=== PATIENT | female | born 1960 | race Caucasian/White ===

== ENCOUNTER 2020-04-02 13:30 | Emergency (ER) | payer OTHER ==
[~2020-04-02] VITALS: Ht 160 cm; Wt 81.0 kg
[2020-04-02] MEDS ORDERED: ASPIRIN 81MG TABLET PO ONE (14:45)
[2020-04-02] MEDS ORDERED: NITROGLYCERIN 0.4MG TABLET SL SL PRN (14:45)
[2020-04-02 16:02] LABS: BASOPHILS % 0.3 % (0.0-2.0); EOSINOPHILS % 0.2 % (0.0-5.0); HEMATOCRIT. 39.5 % (36.0-48.0); HEMOGLOBIN. 13.4 g/dL (12.0-16.0); LYMPHOCYTES % 24.9 % (20.0-50.0); MEAN CORPUSCULAR HEMOGLOBIN 28.5 pg (28.0-32.0); MEAN CORPUSCULAR VOLUME 84.4 fL (81.0-99.0); MEAN PLATELET VOLUME 8.3 fl (7.4-10.4); NEUTROPHILS % 67.6 % (40.0-76.0); PLATELET 189 x1000/uL (130-400); RED BLOOD CELL COUNT 4.69 mill/uL (4.2-5.4); RED CELL DISTRIBUTION WIDTH 13.6 % (11.6-14.6)
[2020-04-02 16:10] LABS: CHLORIDE 106 mEq/L (98-107)
[2020-04-02 16:13] LABS: D-DIMER 0.44 mg/L FEU (<0.50); PARTIAL THROMBOPLASTIN TIME 26.9 sec (23.4-31.0); PROTHROMBIN TIME 10.4 sec (9.6-11.0)
[2020-04-02] MEDS ORDERED: ACETAMINOPHEN 325MG TABLET PO ONE (18:00)
[2020-04-02 18:42] VITALS: BP 151/62
== END 2020-04-02 18:44 | disposition home or self-care (01) ==
LOC: ER 14:06
DX: R07.89 Other chest pain (principal); I10 Essential (primary) hypertension
CPT/HCPCS: 36415; 71045; 80053; 83880; 84484; 85025; 85379; 85610; 85730; 93005; 99285; Z7610

== ENCOUNTER 2020-10-08 20:35 | Emergency (ER) | payer OTHER ==
[~2020-10-08] VITALS: Ht 160 cm; Wt 70.0 kg
[2020-10-09] MEDS ORDERED: DIPHENHYDRAMINE 50MG/ML VIAL IV ONE
[2020-10-09] MEDS ORDERED: METOCLOPRAMIDE HCL 10MG/2ML VIAL IV ONE
[2020-10-09 01:44] VITALS: BP 138/72
== END 2020-10-09 01:51 | disposition home or self-care (01) ==
LOC: ER 20:35
DX: G43.909 Migraine, unspecified, not intractable, without status migrainosus (principal); I10 Essential (primary) hypertension; K76.9 Liver disease, unspecified; E11.9 Type 2 diabetes mellitus without complications
CPT/HCPCS: 96374; 96375; 99284; J1200; J2765

== ENCOUNTER 2020-10-21 12:56 | Emergency (ER) | payer OTHER ==
[~2020-10-21] VITALS: Ht 157.5 cm; Wt 68.0 kg
[2020-10-21] MEDS ORDERED: SUMATRIPTAN SUCCINATE 6MG/0.5ML VIAL SUBCUT ONE (14:15)
[2020-10-21] MEDS ORDERED: LORAZEPAM 0.5MG TABLET PO ONE (14:45)
[2020-10-21] MEDS ORDERED: ACETAMINOPHEN WITH CODEINE 300/60MG TABLET PO NR (19:45)
[2020-10-21 21:06] VITALS: BP 131/51
== END 2020-10-21 21:06 | disposition home or self-care (01) ==
LOC: ER 12:56
DX: R51.9 Headache, unspecified (principal); I49.8 Other specified cardiac arrhythmias; I10 Essential (primary) hypertension; K76.9 Liver disease, unspecified
CPT/HCPCS: 36415; 84484; 93005; 96372; 99285; J3030; Z7610

== ENCOUNTER 2020-11-11 22:05 | Emergency (ER) | payer OTHER ==
[~2020-11-11] VITALS: Ht 157.5 cm; Wt 65.0 kg
[2020-11-12] MEDS ORDERED: HYDROCODONE/ACETAMINOPHEN 5/325MG TABLET PO ONE (02:00)
[2020-11-12] MEDS ORDERED: KETOROLAC 15MG/ML VIAL IM ONE (03:00)
[2020-11-12 03:07] LABS: BASOPHILS % 0.3 % (0.0-2.0); EOSINOPHILS % 0.3 % (0.0-5.0); HEMATOCRIT. 39.2 % (36.0-48.0); HEMOGLOBIN. 13.2 g/dL (12.0-16.0); LYMPHOCYTES % 21.1 % (20.0-50.0); MEAN CORPUSCULAR VOLUME 85.8 fL (81.0-99.0); MEAN PLATELET VOLUME 8.1 fl (7.4-10.4); MONOCYTES % 7.2 % (2.0-8.0); NEUTROPHILS % 71.1 % (40.0-76.0); PLATELET 185 x1000/uL (130-400); RED BLOOD CELL COUNT 4.56 mill/uL (4.2-5.4); RED CELL DISTRIBUTION WIDTH 13.7 % (11.6-14.6)
[2020-11-12 03:13] LABS: CHLORIDE 106 mEq/L (98-107)
[2020-11-12] MEDS ORDERED: IBUP-2028 MT (04:36)
[2020-11-12 04:55] VITALS: BP 134/65
== END 2020-11-12 05:04 | disposition home or self-care (01) ==
LOC: ER 22:05
DX: R07.89 Other chest pain (principal); R51.9 Headache, unspecified; R00.0 Tachycardia, unspecified
CPT/HCPCS: 36415; 71045; 80053; 84484; 85025; 93005; 96372; 99285; J1885

== ENCOUNTER 2022-06-16 17:27 | Emergency (ER) | payer OTHER ==
[~2022-06-16] VITALS: Ht 152.4 cm; Wt 74.0 kg
[~2022-06-16 17:27] MED LIST: IBUP-2028 MT
[2022-06-16] MEDS ORDERED: ACETAMINOPHEN 325MG TABLET PO ONE (18:45)
[2022-06-16] MEDS ORDERED: TETANUS, DIPHTHERIA, PERTUSSIS VAC/PF 0.5ML (>10YR OLD) IM ONE (18:45)
[2022-06-16] MEDS ORDERED: LIDOCAINE HCL 1% 20ML VIAL (Pyxis) INJ INFIL ONE (19:30)
[2022-06-16] MEDS ORDERED: IBUP-1525 MT (20:42)
[2022-06-16] MEDS ORDERED: IBUPROFEN 800MG TABLET PO ONE (20:45)
[2022-06-16 21:00] VITALS: BP 147/56
[2022-06-16] MEDS ORDERED: IBUPROFEN 400MG TABLET PO NR (21:00)
== END 2022-06-16 21:00 | disposition home or self-care (01) ==
LOC: ER 17:27
DX: S61.011A Laceration without foreign body of right thumb without damage to nail, initial encounter (principal); I48.91 Unspecified atrial fibrillation; W26.8XXA Contact with other sharp object(s), not elsewhere classified, initial encounter; Y93.89 Activity, other specified; Y92.89 Other specified places as the place of occurrence of the external cause; Y99.8 Other external cause status
CPT/HCPCS: 12002; 90471; 90715; 99283; Z7610

== ENCOUNTER 2022-06-20 10:00 | Emergency (ER) | payer OTHER ==
[~2022-06-20] VITALS: Ht 152.4 cm; Wt 77.0 kg
[~2022-06-20 10:00] MED LIST changes: +IBUP-1525 MT
[2022-06-20 10:12] VITALS: BP 124/61
== END 2022-06-20 12:16 | disposition home or self-care (01) ==
LOC: ER 10:00
DX: S61.412D Laceration without foreign body of left hand, subsequent encounter (principal); X58.XXXD Exposure to other specified factors, subsequent encounter; I10 Essential (primary) hypertension; Z48.00 Encounter for change or removal of nonsurgical wound dressing; Z90.49 Acquired absence of other specified parts of digestive tract
CPT/HCPCS: 99281